=== PATIENT | male | born 1965 | race Caucasian/White ===

== ENCOUNTER 2017-06-01 09:44 | Emergency (ER) | payer OTHER ==
[2017-06-01 10:00] VITALS: BP 143/82; PULSE 72; RESP 18; TEMP 99; O2SAT 96
--- NOTE | 2017-06-01 10:20 | EDPHY ---
H & P Stated Complaint: c/o Rt ear pain Sat then progressed to rt face numbness and loss ofmovement Time Seen by Provider: 06/01/17 09:55 HPI/ROS: CHIEF COMPLAINT: Right facial weakness History by patient HISTORY OF PRESENT ILLNESS: 51-year-old man with history of hypertension and high triglycerides presents complaining of 2-3 days of a feeling of discomfort and fullness around behind his right ear, however his right eye watering more than usual and then this morning he caught himself and the mere while he was laughing and noticed that the right side of his face was asymmetrical. He denies any visual difficulties or changes. There has been no double vision. There is no difficulty speaking or swallowing. He denies any focal numbness or weakness in any of his limbs. He denies any difficulty with his gait. He notes that his father and his grandmother both had Roblero's palsy. He does not have diabetes. He has had no recent URI. He has no recent history of a tick bite although he did leave and [place] 5 years ago. REVIEW OF SYSTEMS: As in HPI, and all other systems reviewed and are negative Source: Patient - Personal History Tetanus Vaccine Date: 2013 - Medical/Surgical History Hx Asthma: No Hx Chronic Respiratory Disease: No Hx Diabetes: No Hx Cardiac Disease: Yes Hx Renal Disease: No Hx Cirrhosis: No Hx Alcoholism: No Hx HIV/AIDS: No Hx Splenectomy or Spleen Trauma: No Other PMH: hyperlipidemia, HTN, henia, tonsoilectomy - Social History Smoking Status: Never smoked - Physical Exam Exam: General Appearance: Alert, comfortable, well appearing. Head: normocephalic, atraumatic Eyes: Pupils equal and round, reactive to light, no pallor or injection. Extraocular movements intact, no nystagmus Mouth: Mucous membranes moist. TM: Clear bilaterally Respiratory: Normal, effort, lungs are clear to auscultation. No wheezes, rales or rhonchi. Cardiovascular: Regular rate and rhythm. S1, S2, no murmurs, gallops or rubs appreciated Gastrointestinal: Abdomen is soft and nontender, no masses, bowel sounds normal. Back: No CVA tenderness, no bony tenderness Neurological: Awake, alert and oriented x 3, cranial nerves 2-12 intact with the exception of 7, mild right facial droop, inability to hold her right eye closed, positive involvement of right forehead and minimal ability to raise right eyebrow, no pronator drift, normal gait, motor is 5/5 and equal bilaterally lower extremities, DTRs are 2+ and equal bilaterally, heel to fish intact Skin: Warm and dry, no rashes. Musculoskeletal: No deformities or tenderness. Extremities: full range of motion, no edema, DP2+ bilat Psychiatric: Patient has normal affect, there is no agitation. Constitutional: Initial Vital Signs Temperature (C) 37.2 C 06/01/17 09:57 Heart Rate 72 06/01/17 09:57 Respiratory Rate 18 06/01/17 09:57 Blood Pressure 143/82 H 06/01/17 09:57 O2 Sat (%) 96 06/01/17 09:57 O2 Delivery Mode Room Air Allergies/Adverse Reactions: No Known Allergies Allergy (Unverified 05/31/10 09:23) Home Medications: Medication Instructions Recorded Aspirin [Aspirin 81mg] mg PO DAILY 05/31/10 Diuretic 05/31/10 ESOMEPRAZOLE MAG TRIHYDRATE mg PO 05/31/10 [Nexium] FENOFIBRATE NANOCRYSTALLIZED mg PO 05/31/10 [Tricor] LOVASTATIN mg PO 05/31/10 NIACIN [Niaspan] mg PO 05/31/10 amLODIPine BESYLATE [Norvasc 2.5 mg PO DAILY 05/31/10 mg] predniSONE 10 mg PO DAILY #50 tab 06/01/17 Medical Decision Making ED Course/Re-evaluation: 51-year-old man presents complaining of right facial weakness and numbness and 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 Patient was given reassurance there is no evidence of a stroke at this time. We discussed eye protection and treatment. Patient will be started on a prednisone taper. I am recommending close follow-up with his primary care physician. Departure - Departure Disposition: Home, Routine, Self-Care Clinical Impression: Roblero's palsy Condition: Good Instructions: Roblero Palsy (ED) Additional Instructions: You were seen by Dr. Marissa Welch today. Take prednisone as prescribed. Please tape her eye shut at night to avoid getting anything in it and wear glasses at all times during the day. Please follow up with her primary care physician. Return for any worsening or new concerns. Referrals: Crystal Singh MD [Primary Care Provider] - As per Instructions Prescriptions: predniSONE 10 mg PO DAILY #50 tab
== END 2017-06-01 10:32 | disposition home or self-care (01) ==
LOC: CED 09:44
DX: G51.0 Bell's palsy (principal); I10 Essential (primary) hypertension; Z79.82 Long term (current) use of aspirin